=== PATIENT | male | born 1940 | race Caucasian/White ===

== ENCOUNTER 2023-08-16 10:34 | Emergency (ER) | payer MEDICARE ==
[~2023-08-16] VITALS: Ht 167.6 cm; Wt 65.3 kg
[2023-08-16] MEDS ORDERED: FLUORESCEIN SODIUM OPHTH 1 EA STRIP ONE (10:53)
[2023-08-16] MEDS ORDERED: FLUORESCEIN SODIUM OPHTH 1 EA STRIP OP ONE (11:30)
[2023-08-16] MEDS ORDERED: TETRAcaine 5 ML BOTTLE EACHEYE ONE (11:30)
[2023-08-16 11:32] VITALS: BP 130/75; TEMP 98; O2SAT 100
== END 2023-08-16 11:33 | disposition home or self-care (01) ==
LOC: ER 10:34
DX: T15.12XA Foreign body in conjunctival sac, left eye, initial encounter (principal); I10 Essential (primary) hypertension